=== PATIENT | male | born 1975 | race Caucasian/White ===

== ENCOUNTER 2018-02-18 20:27 | Emergency (ER) | payer OTHER ==
[~2018-02-18] VITALS: Ht 182.9 cm; Wt 90.7 kg
[2018-02-18 21:00] LABS: ABSOLUTE BASOPHILS 0.1 thou/uL (0.0-0.2); ABSOLUTE LYMPHOCYTES 1.9 thou/uL (0.8-5.3); ABSOLUTE MONOCYTES 0.5 thou/uL (0.0-1.2); ABSOLUTE NEUTROPHILS 10.3 thou/uL (1.6-8.1); BASOPHILS 0.7 %; EOSINOPHILS 0.4 %; HEMATOCRIT 51.9 % (42.0-52.0); HEMOGLOBIN 18.2 gm/dL (14.0-18.0); LYMPHOCYTES 14.7 %; MCH 30.8 pg (26.0-34.0); MCHC 35.1 g/dL (28.0-37.0); MCV 87.8 fL (80.0-100.0); MONOCYTES 3.6 %; MPV 8.2 fl. (7.2-11.1); NUCLEATED RBCS 0 /100WBC; PLATELET COUNT* 267 thou/uL (150-400); POLYS 80.6 %; RBC 5.91 mil/uL (4.50-6.00); RDW-CV 13.4 % (10.5-14.5); WBC 12.8 thou/uL (4.0-11.0)
[2018-02-18 21:08] LABS: CREATININE 1.8 mg/dL (0.6-1.3)
[2018-02-18 21:12] LABS: ALBUMIN 5.4 g/dL (3.4-5.0); TOTAL BILIRUBIN 1.3 mg/dL (<0.1-1.0); TOTAL PROTEIN 10.4 g/dL (6.4-8.2)
[2018-02-18 21:53] LABS: APTT 25.4 Seconds (25.0-31.3); INR 1.1; PROTIME 10.3 Seconds (9.20-11.50)
[2018-02-18 23:17] LABS: URINE BILIRUBIN NEGATIVE (Negative); URINE BLOOD NEGATIVE (Negative); URINE CLARITY CLEAR; URINE COLOR YELLOW; URINE GLUCOSE-RANDOM NEGATIVE (Negative); URINE KETONES 1+ (Negative); URINE LEUKOCYTES-REFLEX 1+ (Negative); URINE NITRITE-REFLEX NEGATIVE (Negative); URINE PROTEIN NEGATIVE (Negative); URINE SPECIFIC GRAVITY 1.015 (1.005-1.030); URINE UROBILINOGEN 0.2 E.U./dl (0.2-1.0)
[2018-02-18 23:23] LABS: CREATININE 1.5 mg/dL (0.6-1.3); POTASSIUM 4.5 mmol/L (3.5-5.1)
[2018-02-18 23:24] LABS: CALCIUM 8.8 mg/dL (8.5-10.1)
[2018-02-18 23:28] LABS: ALBUMIN 4.1 g/dL (3.4-5.0); MAGNESIUM 1.9 mg/dL (1.8-2.4); TOTAL BILIRUBIN 0.8 mg/dL (<0.1-1.0); TOTAL PROTEIN 7.8 g/dL (6.4-8.2)
[2018-02-18 23:38] LABS: BACTERIA-REFLEX >30 Many /HPF (None Seen); COARSE GRANULAR CASTS 4-10 Moderate /LPF (None Seen); FINE GRANULAR CASTS 4-10 Moderate /LPF (None Seen); HYALINE CASTS 0-3 Few /LPF (None Seen); MUCUS 4-6 Moderate strn/LPF (None Seen); SQUAMOUS 4-10 Moderate /LPF (0-3); TRANSITIONAL EPITHEL CELL 0-3 Few /LPF (None Seen); URINE RBC 3-10 Few /HPF (0-2); WAXY CAST 0-3 Few /LPF (None Seen); WBC CLUMPS Few (None Seen)
[2018-02-18 23:39] LABS: CELLULAR CASTS 0-3 Few /LPF (None Seen); CRYSTALS None Seen /LPF (None Seen)
[2018-02-18 23:50] VITALS: BP 129/72
--- NOTE | 2018-02-19 10:46 | EKG ---
[place] [address] ELECTROCARDIOGRAM REPORT Name: MARY [facility]ATETIMMY 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 : 1975 Requested By: Sue Capps Order Number: [id number] MD: Oj Linton Measurements Intervals [place] Rate: 78 P: 32 UT: 171 QRS: 7 QRSD: 103 T: 13 QT: 365 QTc: 416 Interpretive Statements Sinus rhythm Probable left atrial enlargement RSR' in V1 or V2, right VCD or RVH No previous ECG available for comparison Electronically Signed On 02-19-2018 10:46:32 CDT by Oj Linton [email or web address] <ELECTRONICALLY SIGNED> By: Oj Linton MD, [facility] 02/19/18 1046 09 09 Oj Linton MD, FACC /EPI
== END 2018-02-18 23:50 | disposition home or self-care (01) ==
LOC: M.ERS 20:27
PROVIDERS: Nurse Practitioner Family
DX: E86.0 Dehydration (principal); T67.3XXA Heat exhaustion, anhydrotic, initial encounter; X58.XXXA Exposure to other specified factors, initial encounter

== ENCOUNTER 2021-01-30 18:41 | Emergency (ER) | payer OTHER ==
[~2021-01-30] VITALS: Ht 188 cm; Wt 99.8 kg
[2021-01-30] MEDS ORDERED: LISINOPRIL20 MG PO (19:01)
[2021-01-30] MEDS ORDERED: METFORMIN HCL500 M3 PO (19:01)
[2021-01-30] MEDS ORDERED: TRULICITY3 MG/0.5 M (19:02)
[2021-01-30] MEDS ORDERED: NORTRIPTYLINE H25 M3 PO (19:02)
[2021-01-30 19:28] LABS: ABSOLUTE LYMPHOCYTES 1.3 thou/uL (0.8-5.3); ABSOLUTE MONOCYTES 0.5 thou/uL (0.0-1.2); ABSOLUTE NEUTROPHILS 9.2 thou/uL (1.6-8.1); BASOPHILS 0.3 %; EOSINOPHILS 0.3 %; HEMATOCRIT 51.7 % (42.0-52.0); HEMOGLOBIN 18.3 gm/dL (14.0-18.0); LYMPHOCYTES 11.4 %; MCH 31.1 pg (26.0-34.0); MCHC 35.5 g/dL (28.0-37.0); MCV 87.6 fL (80.0-100.0); MONOCYTES 4.5 %; NUCLEATED RBCS 0 /100WBC; PLATELET COUNT* 250 thou/uL (150-400); POLYS 83.5 %; RDW-CV 13.3 % (10.5-14.5)
[2021-01-30 19:33] LABS: CALCIUM 10.7 mg/dL (8.5-10.1); CREATININE 1.9 mg/dL (0.6-1.3); POTASSIUM 5.9 mmol/L (3.5-5.1)
[2021-01-30 19:37] LABS: ALBUMIN 5.2 g/dL (3.4-5.0); MAGNESIUM 1.4 mg/dL (1.8-2.4); TOTAL BILIRUBIN 0.9 mg/dL (<0.1-1.0); TOTAL PROTEIN 9.7 g/dL (6.4-8.2)
[2021-01-30 21:22] LABS: CALCIUM 9.3 mg/dL (8.5-10.1); CREATININE 1.7 mg/dL (0.6-1.3)
[2021-01-30 21:25] LABS: POTASSIUM 4.6 mmol/L (3.5-5.1)
[2021-01-30 22:10] LABS: URINE BILIRUBIN NEGATIVE (Negative); URINE BLOOD NEGATIVE (Negative); URINE CLARITY CLEAR; URINE COLOR YELLOW; URINE GLUCOSE-RANDOM 3+ (Negative); URINE KETONES 1+ (Negative); URINE LEUKOCYTES-REFLEX NEGATIVE (Negative); URINE NITRITE-REFLEX NEGATIVE (Negative); URINE PROTEIN TRACE (Negative); URINE SPECIFIC GRAVITY >= 1.030 (1.005-1.030)
[2021-01-30] MEDS ORDERED: ZOFRAN ODT4 MG PO (22:16)
[2021-01-30 23:02] VITALS: BP 126/80
--- NOTE | 2021-01-31 08:40 | EKG ---
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: : 1975 Requested By: Samantha Crabtree Order Number: [id number] MD: Colby Brown Measurements Intervals [place] Rate: 101 P: 36 TN: 163 QRS: -7 QRSD: 98 T: 29 QT: 334 QTc: 433 Interpretive Statements Sinus tachycardia Baseline wander in lead(s) V4 Compared to ECG 02/18/2018 21:10:41 Sinus rhythm no longer present Right ventricular hypertrophy no longer present Electronically Signed On 01-31-2021 8:40:35 CDT by Colby Brown [email or web address] <ELECTRONICALLY SIGNED> By: Colby Brown MD, FACC 01/31/21 0840 58 58 Colby Brown MD, [facility] /EPI
== END 2021-01-30 23:04 | disposition home or self-care (01) ==
LOC: M.ERS 18:41
PROVIDERS: Emergency Medicine
DX: T67.5XXA Heat exhaustion, unspecified, initial encounter (principal); I10 Essential (primary) hypertension; E11.9 Type 2 diabetes mellitus without complications; G43.909 Migraine, unspecified, not intractable, without status migrainosus; Z79.899 Other long term (current) drug therapy; X58.XXXA Exposure to other specified factors, initial encounter; Y93.89 Activity, other specified; Y92.89 Other specified places as the place of occurrence of the external cause; Y99.8 Other external cause status

== ENCOUNTER 2021-07-03 20:51 | Emergency (ER) | payer OTHER ==
[~2021-07-03] VITALS: Ht 188 cm; Wt 99.8 kg
[~2021-07-03 20:51] MED LIST: LISINOPRIL20 MG PO; METFORMIN HCL500 M3 PO; NORTRIPTYLINE H25 M3 PO; TRULICITY3 MG/0.5 M; ZOFRAN ODT4 MG PO
[2021-07-03] MEDS ORDERED: OMEPRAZOLE20 M2 PO (21:11)
[2021-07-03] MEDS ORDERED: LIPITOR10 MG PO (21:12)
[2021-07-04] MEDS ORDERED: DOXYCYCLINE 10100 MG PO (00:58)
[2021-07-04 01:24] VITALS: BP 140/71
== END 2021-07-04 01:24 | disposition home or self-care (01) ==
LOC: M.ERS 20:51
DX: L02.212 Cutaneous abscess of back [any part, except buttock and flank] (principal); E11.9 Type 2 diabetes mellitus without complications; I10 Essential (primary) hypertension; G43.909 Migraine, unspecified, not intractable, without status migrainosus; Z79.899 Other long term (current) drug therapy

== ENCOUNTER 2021-08-04 23:38 | Emergency (ER) | payer OTHER ==
[~2021-08-04] VITALS: Ht 188 cm; Wt 97.5 kg
[~2021-08-04 23:38] MED LIST changes: +DOXYCYCLINE 10100 MG PO; +LIPITOR10 MG PO; +OMEPRAZOLE20 M2 PO
[2021-08-05 00:28] LABS: ABSOLUTE LYMPHOCYTES 0.7 thou/uL (0.8-5.3); ABSOLUTE MONOCYTES 0.6 thou/uL (0.0-1.2); BASOPHILS 0.5 %; EOSINOPHILS 0.4 %; HEMATOCRIT 44.1 % (42.0-52.0); HEMOGLOBIN 15.4 gm/dL (14.0-18.0); LYMPHOCYTES 16.6 %; MCH 30.3 pg (26.0-34.0); MCV 86.6 fL (80.0-100.0); MONOCYTES 12.9 %; MPV 8.3 fl. (7.2-11.1); NUCLEATED RBCS 0 /100WBC; PLATELET COUNT* 160 thou/uL (150-400); POLYS 69.6 %; RBC 5.09 mil/uL (4.50-6.00); RDW-CV 13.5 % (10.5-14.5); WBC 4.4 thou/uL (4.0-11.0)
[2021-08-05 00:32] LABS: CALCIUM 8.5 mg/dL (8.5-10.1); CREATININE 1.4 mg/dL (0.6-1.3)
[2021-08-05 00:41] LABS: ALBUMIN 3.5 g/dL (3.4-5.0); MAGNESIUM 1.2 mg/dL (1.8-2.4); TOTAL BILIRUBIN 0.4 mg/dL (<0.1-1.0); TOTAL PROTEIN 7.2 g/dL (6.4-8.2)
[2021-08-05 00:46] LABS: INFLUENZA A ANTIGEN Negative (Negative); INFLUENZA B ANTIGEN Negative (Negative)
[2021-08-05 00:49] LABS: BE -2.2 mmol/L (-2 to +3); PCO2 30.6 mmHg (35.0-45.0); PO2 69.8 mmHg (75.0-100.0); pH 7.447 (7.340-7.450)
[2021-08-05] MEDS ORDERED: MEDROLDOSEPACK PO (03:29)
[2021-08-05] MEDS ORDERED: AZITHROMYCIN 2250 MG PO (03:29)
[2021-08-05 03:45] VITALS: BP 116/64
--- NOTE | 2021-08-05 15:30 | EKG ---
[place] [address] ELECTROCARDIOGRAM REPORT Name: TIMMY HARTMANN Room: 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: [place] : 1975 Requested By: Prachi Plummer Order Number: [id number] MD: Jadiel Petersen Measurements Intervals [place] Rate: 126 P: 48 NV: 147 QRS: 17 QRSD: 86 T: 50 QT: 283 QTc: 410 Interpretive Statements Sinus tachycardia Compared to ECG 01/30/2021 19:59:49 No significant changes Electronically Signed On 08-05-2021 15:30:26 POLICY ISSUE CLERK by Jadiel Petersen [email or web address] <ELECTRONICALLY SIGNED> By: Jadiel Petersen MD, [facility] 08/05/21 1530 2338 Jadiel Petersen MD, [facility] /EPI
== END 2021-08-05 03:47 | disposition home or self-care (01) ==
LOC: M.ERS 23:38
PROVIDERS: Personal Emergency Response Attendant
DX: U07.1 COVID-19 (principal); Z20.822 Contact with and (suspected) exposure to COVID-19; E83.42 Hypomagnesemia; E11.9 Type 2 diabetes mellitus without complications; I10 Essential (primary) hypertension; G43.909 Migraine, unspecified, not intractable, without status migrainosus; Z79.899 Other long term (current) drug therapy; Z88.8 Allergy status to other drugs, medicaments and biological substances

== ENCOUNTER 2021-10-14 19:14 | Emergency (ER) | payer OTHER ==
[~2021-10-14] VITALS: Ht 188 cm; Wt 95.3 kg
[~2021-10-14 19:14] MED LIST changes: +AZITHROMYCIN 2250 MG PO; +MEDROLDOSEPACK PO
[2021-10-14] MEDS ORDERED: CEPHALEXIN500 MG PO (23:15)
[2021-10-14] MEDS ORDERED: BACTRIM DS TAB1 EACH PO (23:15)
[2021-10-14] MEDS ORDERED: ZOFRAN ODT4 MG PO (23:16)
[2021-10-14] MEDS ORDERED: NORCO5 PO (23:45)
[2021-10-15 00:11] VITALS: BP 132/68
== END 2021-10-15 00:12 | disposition home or self-care (01) ==
LOC: M.ERS 19:14
DX: S70.361A Insect bite (nonvenomous), right thigh, initial encounter (principal); L03.115 Cellulitis of right lower limb; I10 Essential (primary) hypertension; E11.9 Type 2 diabetes mellitus without complications; K21.9 Gastro-esophageal reflux disease without esophagitis; Z79.84 Long term (current) use of oral hypoglycemic drugs; Z79.899 Other long term (current) drug therapy; Z88.8 Allergy status to other drugs, medicaments and biological substances